=== PATIENT | male | born 1950 | race Caucasian/White ===

== ENCOUNTER 2017-03-18 15:07 | Inpatient (IN) | payer MEDICARE, BC ==
[2017-03-18] VITALS (9 sets, daily range): BP systolic 122–190; BP diastolic 52–97
[~2017-03-18] VITALS: Ht 182.9 cm; Wt 105.4 kg
[2017-03-18] MEDS ORDERED: fentaNYL PF VIAL 100 MCG/2 ML VIAL IV ONE (15:15)
[2017-03-18] MEDS ORDERED: MIDAZOLAM HCL/PF 5 MG/5 ML VIAL. IV ONE ×2 (15:15→16:00)
[2017-03-18] MEDS ORDERED: SUCCINYLCHOLINE 200 MG/10 ML VIAL. IV ONE (15:15)
[2017-03-18] MEDS ORDERED: PROPOFOL 10 MG/ML (20ML) VIAL. IV ONE (15:15)
[2017-03-18] MEDS ORDERED: LABETALOL 20 MG/4 ML DISP.SYRIN. IVP ONE (15:15)
[2017-03-18] MEDS ORDERED: ETOMIDATE 20 MG/10 ML VIAL. IV ONE (15:15)
--- NOTE | 2017-03-18 15:26 | PHYS DOC ---
Adult General HPI HPI Patient is a 66 year old male presenting to the emergency department for evaluation of being unresponsive. Patient has a GCS of 3. EMS reported a GCS of 8 however he will not respond to pain open his eyes or move any part of his body. Later on gave me history that he was at [facility] 2 days ago to have a gallbladder stent removed and he had a fall they say that his aspirin was stopped 2 days ago but he was started on Eliquis. Patient was intubated on arrival as he had gurgling breath sounds and basically unresponsive. Shortly after being intubated he was taken to the CT scanner and was found to have a catastrophic intracerebral hemorrhage that extended into his ventricle and cause massive midline shift. 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 Milner and he said this isn't unsurvivable event and was okay having the patient stay here. Review of Systems Review of Systems Unable to obtain due to medical condition Current Medications Current Medications Current Medications Medications (Trade) Dose Ordered Sig/Hernesto Start Time Stop Time Status Last Admin Dose Admin Etomidate (Amidate) 20 mg 1X ONCE 03/18/17 15:15 03/18/17 15:22 DC Fentanyl Citrate (Fentanyl 2ml Vial) 100 mcg 1X ONCE 03/18/17 15:15 03/18/17 15:22 DC Labetalol HCl (Normodyne) 20 mg 1X ONCE 03/18/17 15:15 03/18/17 15:22 DC Lorazepam (Ativan) 2 mg PRN Q4HRS PRN 03/18/17 16:30 Midazolam HCl (Versed) 5 mg 1X ONCE 03/18/17 16:00 03/18/17 16:01 DC Ondansetron HCl (Zofran) 4 mg PRN Q8HRS PRN 03/18/17 16:00 03/19/17 15:59 Propofol (Diprivan) 200 mg 1X ONCE 03/18/17 15:15 03/18/17 15:22 DC Sodium Chloride 1,000 ml @ 1,000 mls/hr 1X ONCE 03/18/17 15:45 03/18/17 16:44 03/18/17 16:31 1,000 MLS/HR Succinylcholine Chloride (Anectine) 100 mg 1X ONCE 03/18/17 15:15 03/18/17 15:22 DC Allergies Allergies Allergies Coded Allergies Type Severity Reaction Last Updated Verified Unable to Assess 03/18/17 No Physical Exam Physical Exam Constitutional: Unresponsive with gurgling breath sounds HENT: Normocephalic, atraumatic, lead to felt to be a subcutaneous cyst on his left occipital area Eyes: Pupils approximately 6 mm bilaterally with no response to light Neck: no stridor. [] Cardiovascular:Heart rate regular rhythm, no murmur [] Lungs & Thorax: Bilateral breath sounds coarse BL Abdomen: soft Skin: Warm, dry, no erythema Back: No deformity Extremities: BL 2-3+ edema Neurologic: Unresponsive with GCS of 3 Current Patient Data Vital Signs Vital Signs Date Time Temp Pulse Resp B/P (MAP) Pulse Ox O2 Delivery O2 Flow Rate FiO2 03/18/17 16:24 62 20 108/57 (74) 100 Ventilator 03/18/17 15:12 98.7 98.7 Lab Values Laboratory Tests Test 03/18/17 15:15 03/18/17 15:20 03/18/17 15:35 Salicylates Level < 2.8 mg/dL (2.8-20.0) L Salicylate Last Dose Date Unk Salicylate Last Dose Time Unk Acetaminophen Level < 10 mcg/ml (10-30) L Acetaminophen Last Dose Date Unk Acetaminophen Last Dose Time Unk Ethyl Alcohol Level < 10 mg/dL (0-10) White Blood Count 21.6 x10^3/uL (4.0-11.0) H Red Blood Count 4.43 x10^6/uL (4.30-5.70) Hemoglobin 10.8 g/dL (13.0-17.5) L Hematocrit 35.2 % (39.0-53.0) L Mean Corpuscular Volume 80 fL (79-100) Mean Corpuscular Hemoglobin 24 pg (25-35) L Mean Corpuscular Hemoglobin Concent 31 g/dL (31-37) Red Cell Distribution Width 17.7 % (11.5-14.5) H Platelet Count 234 x10^3/uL (140-400) Neutrophils (%) (Auto) 94 % (31-73) H Lymphocytes (%) (Auto) 2 % (24-48) L Monocytes (%) (Auto) 4 % (0-9) Eosinophils (%) (Auto) 0 % (0-3) Basophils (%) (Auto) 0 % (0-3) Neutrophils # (Auto) 20.2 x10^3uL (1.8-7.7) H Lymphocytes # (Auto) 0.4 x10^3/uL (1.0-4.8) L Monocytes # (Auto) 0.9 x10^3/uL (0.0-1.1) Eosinophils # (Auto) 0.0 x10^3/uL (0.0-0.7) Basophils # (Auto) 0.1 x10^3/uL (0.0-0.2) Platelet Estimate Pending Prothrombin Time 15.6 SEC (11.7-14.0) H Prothrombin Time INR 1.3 (0.8-1.1) H PTT 26 SEC (24-38) Sodium Level 143 mmol/L (136-145) Potassium Level 3.3 mmol/L (3.5-5.1) L Chloride Level 102 mmol/L (98-107) Carbon Dioxide Level 31 mmol/L (21-32) Anion Gap 10 (6-14) Blood Urea Nitrogen 22 mg/dL (8-26) Creatinine 1.2 mg/dL (0.7-1.3) Estimated GFR (Cockcroft-Gault) 60.4 BUN/Creatinine Ratio 18 (6-20) Glucose Level 166 mg/dL (70-99) H Lactic Acid Level 3.9 mmol/L (0.4-2.0) H Calcium Level 8.9 mg/dL (8.5-10.1) Magnesium Level 1.9 mg/dL (1.8-2.4) Total Bilirubin 0.6 mg/dL (0.2-1.0) Aspartate Amino Transferase (AST) 16 U/L (15-37) Alanine Aminotransferase (ALT) 18 U/L (16-63) Alkaline Phosphatase 82 U/L (46-116) Creatine Kinase 34 U/L (39-308) L Troponin I Quantitative 0.028 ng/mL (0.000-0.055) Total Protein 8.3 g/dL (6.4-8.2) H Albumin 3.6 g/dL (3.4-5.0) Albumin/Globulin Ratio 0.8 (1.0-1.7) L Lipase 73 U/L (73-393) Urine Collection Type U cath Urine Color Yellow Urine Clarity Clear Urine pH 7.5 Urine Specific [place] 1.010 Urine Protein Negative mg/dL (NEG-TRACE) Urine Glucose (UA) 100 mg/dL (NEG) Urine Ketones (Stick) Negative mg/dL (NEG) Urine Blood Large (NEG) Urine Nitrite Negative (NEG) Urine Bilirubin Negative (NEG) Urine Urobilinogen Dipstick 0.2 mg/dL (0.2 mg/dL) Urine Leukocyte Esterase Negative (NEG) Urine RBC 1-2 /HPF (0-2) Urine WBC Occ /HPF (0-4) Urine Squamous Epithelial Cells Few /LPF Urine Bacteria Many /HPF (0-FEW) Urine Opiates Screen Neg (NEG) Urine Methadone Screen Neg (NEG) Urine Barbiturates Neg (NEG) Urine Phencyclidine Screen Neg (NEG) Urine Amphetamine/Methamphetamine Neg (NEG) Urine Benzodiazepines Screen Neg (NEG) Urine Cocaine Screen Neg (NEG) Urine Cannabinoids Screen Neg (NEG) Urine Ethyl Alcohol Neg (NEG) Laboratory Tests 03/18/17 15:20 Laboratory Tests 03/18/17 15:20 EKG EKG Sinus rhythm at 80 bpm with normal axis no obvious ST elevation or depression and normal T waves. Radiology/Procedures Radiology/Procedures Indication change in mental status. Unresponsive. Code stroke. Noncontrast images of the head were obtained. No prior imaging of the head is available. Preliminary critical results were communicated to Dr. Sharma, in the emergency room, at the time of dictation. There is a large parenchymal hemorrhage in the right frontal and parietal lobes. There is some associated surrounding edema. The parenchymal hemorrhage measures approximately 6.8 cm in greatest dimension. There is associated mass effect with midline shift of approximately 1 cm. There is probable early hydrocephalus associated with the left lateral ventricle. Hemorrhage extends into both lateral ventricles the third and fourth ventricles. Some hemorrhagic component extends into the right temporal lobe. No significant subarachnoid hemorrhage is seen. IMPRESSION: Large parenchymal hemorrhage in the right cerebral hemisphere with associated surrounding edema and moderate right to left shift. There is ventricular extension of the hemorrhage. PQRS Compliance Statement: One or more of the following individualized dose reduction techniques were utilized for this examination: 1. Automated exposure control 2. Adjustment of the mA and/or kV according to patient size 3. Use of iterative reconstruction technique DICTATED and SIGNED BY: HOWARD ACOSTA MD DATE: 03/18/17 1537 Portable chest, 03/18/2017: History: Intubation No previous chest radiographs are available at this time for comparison purposes. An ET tube is in place with its tip located 4 cm above the josselin. An NG tube extends at least into the distal esophagus, although its tip is not visible on this exam The heart is enlarged. The pulmonary vascularity is congested with loss of vascular margination. There are moderate bibasilar opacities suggesting pleural fluid and underlying infiltrate. The hemidiaphragms are obscured. There is no evidence of pneumothorax. IMPRESSION: 1. The ET tube is in satisfactory position. 2. An NG tube extends at least into the distal esophagus. 3. Bilateral pulmonary infiltrates most compatible with pulmonary edema due to congestive heart failure with moderate-sized bilateral pleural effusions. DICTATED and SIGNED BY: ELADIA LAUREN MD DATE: 03/18/17 1329 Impressions: Indication: Respiratory failure Consent: Unable to give consent due to emergent nature. Medications Used: see nursing note Procedure: The patient was placed in the appropriate position. Intubation was performed using direct visualization and a 7.5 endotracheal tube. Tube secured at 24 cm at the teeth. Initial confirmation of placement included bilateral breath sounds, tube fogging, adequate chest rise, adequate pulse oximetry reading. A chest x-ray to verify correct placement of the tube showed appropriate tube position. The patient tolerated the procedure well. Complications: none. Course & Med Decision Making Course & Med Decision Making Patient with unsurvivable injury unfortunately. Patient received a dose of fentanyl and 2 doses of Versed and this lowered his blood pressure to the 100 to 130 systolic range but he received no blood pressure medications. Patient will be admitted to the ICU with palliative care consult. I had extensive discussion with family regarding his [id number] and having an unsurvivable injury. Critical care time of 40 minutes Dragon Disclaimer Dragon Disclaimer This electronic medical record was generated, in whole or in part, using a voice recognition dictation system. Departure Departure Impression: Primary Impression: Hemorrhagic cerebrovascular accident (CVA) Additional Impressions: CHF (congestive heart failure) Lactic acid acidosis Leukocytosis Disposition: ADMITTED INPATIENT Admitting Physician: Dulce Pruitt Condition: GRAVE Problem Qualifiers SAMREEN SHARMA DO Mar 18, 2017 15:26
--- NOTE | 2017-03-18 15:34 | RAD ---
Portable chest, 03/18/2017: History: Intubation No previous chest radiographs are available at this time for comparison purposes. An ET tube is in place with its tip located 4 cm above the josselin. An NG tube extends at least into the distal esophagus, although its tip is not visible on this exam The heart is enlarged. The pulmonary vascularity is congested with loss of vascular margination. There are moderate bibasilar opacities suggesting pleural fluid and underlying infiltrate. The hemidiaphragms are obscured. There is no evidence of pneumothorax. IMPRESSION: 1. The ET tube is in satisfactory position. 2. An NG tube extends at least into the distal esophagus. 3. Bilateral pulmonary infiltrates most compatible with pulmonary edema due to congestive heart failure with moderate-sized bilateral pleural effusions.
[2017-03-18] MEDS ORDERED: IV NORMAL SALINE 1000ML BAG 1,000 ML IV ONE (15:45)
--- NOTE | 2017-03-18 15:46 | RAD ---
Indication change in mental status. Unresponsive. Code stroke. Noncontrast images of the head were obtained. No prior imaging of the head is available. Preliminary critical results were communicated to Dr. Garcia, in the emergency room, at the time of dictation. There is a large parenchymal hemorrhage in the right frontal and parietal lobes. There is some associated surrounding edema. The parenchymal hemorrhage measures approximately 6.8 cm in greatest dimension. There is associated mass effect with midline shift of approximately 1 cm. There is probable early hydrocephalus associated with the left lateral ventricle. Hemorrhage extends into both lateral ventricles the third and fourth ventricles. Some hemorrhagic component extends into the right temporal lobe. No significant subarachnoid hemorrhage is seen. IMPRESSION: Large parenchymal hemorrhage in the right cerebral hemisphere with associated surrounding edema and moderate right to left shift. There is ventricular extension of the hemorrhage. PQRS Compliance Statement: One or more of the following individualized dose reduction techniques were utilized for this examination: 1. Automated exposure control 2. Adjustment of the mA and/or kV according to patient size 3. Use of iterative reconstruction technique
[2017-03-18 15:48] LABS: BASO # 0.1 x10^3/uL (0.0-0.2); BASO % 0 % (0-3); EOS % 0 % (0-3); HEMATOCRIT 35.2 % (39.0-53.0); HEMOGLOBIN 10.8 g/dL (13.0-17.5); LYMPH # 0.4 x10^3/uL (1.0-4.8); LYMPH % 2 % (24-48); MEAN CORPUSCULAR HEMOGLOBIN 24 pg (25-35); MEAN CORPUSCULAR HGB CONC 31 g/dL (31-37); MEAN CORPUSCULAR VOLUME 80 fL (79-100); MONO % 4 % (0-9); NEUT % 94 % (31-73); PLATELET COUNT 234 x10^3/uL (140-400); RED BLOOD COUNT 4.43 x10^6/uL (4.30-5.70); RED CELL DISTRIBUTION WIDTH 17.7 % (11.5-14.5); WHITE BLOOD COUNT 21.6 x10^3/uL (4.0-11.0)
[2017-03-18 16:00] LABS: INR 1.3 (0.8-1.1); PROTHROMBIN TIME PATIENT 15.6 SEC (11.7-14.0)
[2017-03-18] MEDS ORDERED: ONDANSETRON PF 4 MG/2 ML VIAL. IV PRN (16:00)
[2017-03-18 16:01] LABS: BILIRUBIN,URINE NEGATIVE (NEG); GLUCOSE,URINE 100 mg/dL (NEG); NITRITE,URINE NEGATIVE (NEG); PH,URINE 7.5; PROTEIN,URINE NEGATIVE (NEG-TRACE); UROBILINOGEN,URINE 0.2 mg/dL (0.2 mg/dL)
[2017-03-18 16:03] LABS: BARBITURATES NEG (NEG); BENZODIAZEPINES NEG (NEG); CANNABINOIDS NEG (NEG); COCAINE NEG (NEG); METHADONE NEG (NEG); OPIATES NEG (NEG); PHENCYCLIDINE NEG (NEG)
[2017-03-18 16:09] LABS: BACTERIA,URINE MANY /HPF (0-FEW); WBC,URINE OCC /HPF (0-4)
[2017-03-18 16:10] LABS: SQUAMOUS EPITHELIAL CELL,UR FEW /LPF
[2017-03-18 16:12] LABS: CALCIUM 8.9 mg/dL (8.5-10.1); CREATININE 1.2 mg/dL (0.7-1.3); GFR 60.4; POTASSIUM 3.3 mmol/L (3.5-5.1)
[2017-03-18 16:17] LABS: ALBUMIN 3.6 g/dL (3.4-5.0); ALBUMIN/GLOBULIN RATIO 0.8 (1.0-1.7); MAGNESIUM 1.9 mg/dL (1.8-2.4); TOTAL BILIRUBIN 0.6 mg/dL (0.2-1.0); TOTAL PROTEIN 8.3 g/dL (6.4-8.2)
[2017-03-18 16:20] LABS: ETHANOL < 10 mg/dL (0-10)
--- NOTE | 2017-03-18 16:27 | PDOC1 ---
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 At ER arrival, GCS 3, intubated immediately, CT head shows: IMPRESSION: Large parenchymal hemorrhage in the right cerebral hemisphere with associated surrounding edema and moderate right to left shift. There is ventricular extension of the hemorrhage. Neuro sx consulted, no change of survival or meaningful recovery, Was initially hypertensive on arrival, very, no falls. ER MD has updated family and so by my visit they are all shaken up and cant decide yet on when to terminally extubate (though they know this is the next step). Also unable to address code status with and dtr, But they do know no chance of meaningful recovery, as also shared by neurosx. BUt understands I wont start IVF, stop blood draws, and no PO meds, I will involve SW to get hospice, leaning towards SNU with hospice rather than home with hospice, Visited second time at ER to ask code status, dtr unable to make that call, wants to talk with her mother, Clearly still all shaken up and unable to make decisions currently,. Past Medical History Cardiovascular: AFIB, HTN, Hyperlipidemia Past Surgical History Past Surgical History: Cholecystectomy Social History Smoke: No ALCOHOL: none Drugs: None Current Medications Current Medications Current Medications Succinylcholine Chloride (Anectine) 100 mg 1X ONCE IV ; Start 03/18/17 at 15:15 ; Stop 03/18/17 at 15:22; Status DC Etomidate (Amidate) 20 mg 1X ONCE IV ; Start 03/18/17 at 15:15; Stop 03/18/17 at 15:22; Status DC Midazolam HCl (Versed) 5 mg 1X ONCE IV ; Start 03/18/17 at 15:15; Stop 03/18/17 at 15:22; Status DC Fentanyl Citrate (Fentanyl 2ml Vial) 100 mcg 1X ONCE IV ; Start 03/18/17 at 15: 15; Stop 03/18/17 at 15:22; Status DC Propofol (Diprivan) 200 mg 1X ONCE IV ; Start 03/18/17 at 15:15; Stop 03/18/17 at 15:22; Status DC Labetalol HCl (Normodyne) 20 mg 1X ONCE IVP ; Start 03/18/17 at 15:15; Stop 03/18 at 15:22; Status DC Midazolam HCl (Versed) 5 mg 1X ONCE IV ; Start 03/18/17 at 16:00; Stop 03/18/17 at 16:01; Status DC Sodium Chloride 1,000 ml @ 1,000 mls/hr 1X ONCE IV ; Start 03/18/17 at 15:45; Stop 03/18/17 at 16:44 Ondansetron HCl (Zofran) 4 mg PRN Q8HRS PRN IV NAUSEA/VOMITING; Start 03/18/17 at 16:00; Stop 03/19/17 at 15:59 Allergies Allergies: Coded Allergies: Unable to Assess (Unverified , 03/18/17) ROS Review of System GCS 3 Physical Exam General: No acute distress, Other (intubated, no sedation, no response to sternal rub) Lungs: Clear to auscultation Heart: S1S2 Cardiovascular: S1, S2 Abdomen: Normal bowel sounds, Soft, No tenderness, No hepatosplenomegaly, No masses, Other (midline vertical scar) Male Genitals Exam: normal genitalia, normal prostate PELVIC: Nml ext genitalia Extremities: No clubbing, No cyanosis, No edema, Normal pulses, No tenderness/ swelling Skin: No rashes, No breakdown, No significant lesion Neuro: Normal gait, Normal speech, Strength at 5/5 X4 ext, Normal tone, Sensation intact, Cranial nerves 3-12 NL, Reflexes 2+ Psych/Mental Status: Mental status NL, Mood NL Vitals Vitals Vital Signs Date Time Temp Pulse Resp B/P (MAP) Pulse Ox O2 Delivery O2 Flow Rate FiO2 03/18/17 15:12 98.7 92 20 208/105 (139) 100 NonRebreather Mask 98.7 Labs Labs Laboratory Tests Test 03/18/17 15:15 03/18/17 15:20 03/18/17 15:35 Salicylates Level < 2.8 mg/dL (2.8-20.0) Salicylate Last Dose Date Unk Salicylate Last Dose Time Unk Acetaminophen Level < 10 mcg/ml (10-30) Acetaminophen Last Dose Date Unk Acetaminophen Last Dose Time Unk Ethyl Alcohol Level < 10 mg/dL (0-10) White Blood Count 21.6 x10^3/uL (4.0-11.0) Red Blood Count 4.43 x10^6/uL (4.30-5.70) Hemoglobin 10.8 g/dL (13.0-17.5) Hematocrit 35.2 % (39.0-53.0) Mean Corpuscular Volume 80 fL (79-100) Mean Corpuscular Hemoglobin 24 pg (25-35) Mean Corpuscular Hemoglobin Concent 31 g/dL (31-37) Red Cell Distribution Width 17.7 % (11.5-14.5) Platelet Count 234 x10^3/uL (140-400) Neutrophils (%) (Auto) 94 % (31-73) Lymphocytes (%) (Auto) 2 % (24-48) Monocytes (%) (Auto) 4 % (0-9) Eosinophils (%) (Auto) 0 % (0-3) Basophils (%) (Auto) 0 % (0-3) Neutrophils # (Auto) 20.2 x10^3uL (1.8-7.7) Lymphocytes # (Auto) 0.4 x10^3/uL (1.0-4.8) Monocytes # (Auto) 0.9 x10^3/uL (0.0-1.1) Eosinophils # (Auto) 0.0 x10^3/uL (0.0-0.7) Basophils # (Auto) 0.1 x10^3/uL (0.0-0.2) Prothrombin Time 15.6 SEC (11.7-14.0) Prothromb Time International Ratio 1.3 (0.8-1.1) Activated Partial Thromboplast Time 26 SEC (24-38) Sodium Level 143 mmol/L (136-145) Potassium Level 3.3 mmol/L (3.5-5.1) Chloride Level 102 mmol/L (98-107) Carbon Dioxide Level 31 mmol/L (21-32) Anion Gap 10 (6-14) Blood Urea Nitrogen 22 mg/dL (8-26) Creatinine 1.2 mg/dL (0.7-1.3) Estimated GFR (Cockcroft-Gault) 60.4 BUN/Creatinine Ratio 18 (6-20) Glucose Level 166 mg/dL (70-99) Lactic Acid Level 3.9 mmol/L (0.4-2.0) Calcium Level 8.9 mg/dL (8.5-10.1) Magnesium Level 1.9 mg/dL (1.8-2.4) Total Bilirubin 0.6 mg/dL (0.2-1.0) Aspartate Amino Transf (AST/SGOT) 16 U/L (15-37) Alanine Aminotransferase (ALT/SGPT) 18 U/L (16-63) Alkaline Phosphatase 82 U/L (46-116) Creatine Kinase 34 U/L (39-308) Troponin I Quantitative 0.028 ng/mL (0.000-0.055) Total Protein 8.3 g/dL (6.4-8.2) Albumin 3.6 g/dL (3.4-5.0) Albumin/Globulin Ratio 0.8 (1.0-1.7) Lipase 73 U/L (73-393) Urine Collection Type U cath Urine Color Yellow Urine Clarity Clear Urine pH 7.5 Urine Specific [place] 1.010 Urine Protein Negative mg/dL (NEG-TRACE) Urine Glucose (UA) 100 mg/dL (NEG) Urine Ketones (Stick) Negative mg/dL (NEG) Urine Blood Large (NEG) Urine Nitrite Negative (NEG) Urine Bilirubin Negative (NEG) Urine Urobilinogen Dipstick 0.2 mg/dL (0.2 mg/dL) Urine Leukocyte Esterase Negative (NEG) Urine RBC 1-2 /HPF (0-2) Urine WBC Occ /HPF (0-4) Urine Squamous Epithelial Cells Few /LPF Urine Bacteria Many /HPF (0-FEW) Urine Opiates Screen Neg (NEG) Urine Methadone Screen Neg (NEG) Urine Barbiturates Neg (NEG) Urine Phencyclidine Screen Neg (NEG) Urine Amphetamine/Methamphetamine Neg (NEG) Urine Benzodiazepines Screen Neg (NEG) Urine Cocaine Screen Neg (NEG) Urine Cannabinoids Screen Neg (NEG) Urine Ethyl Alcohol Neg (NEG) Laboratory Tests Test 03/18/17 15:15 03/18/17 15:20 03/18/17 15:35 Salicylates Level < 2.8 mg/dL (2.8-20.0) Salicylate Last Dose Date Unk Salicylate Last Dose Time Unk Acetaminophen Level < 10 mcg/ml (10-30) Acetaminophen Last Dose Date Unk Acetaminophen Last Dose Time Unk Ethyl Alcohol Level < 10 mg/dL (0-10) White Blood Count 21.6 x10^3/uL (4.0-11.0) Red Blood Count 4.43 x10^6/uL (4.30-5.70) Hemoglobin 10.8 g/dL (13.0-17.5) Hematocrit 35.2 % (39.0-53.0) Mean Corpuscular Volume 80 fL (79-100) Mean Corpuscular Hemoglobin 24 pg (25-35) Mean Corpuscular Hemoglobin Concent 31 g/dL (31-37) Red Cell Distribution Width 17.7 % (11.5-14.5) Platelet Count 234 x10^3/uL (140-400) Neutrophils (%) (Auto) 94 % (31-73) Lymphocytes (%) (Auto) 2 % (24-48) Monocytes (%) (Auto) 4 % (0-9) Eosinophils (%) (Auto) 0 % (0-3) Basophils (%) (Auto) 0 % (0-3) Neutrophils # (Auto) 20.2 x10^3uL (1.8-7.7) Lymphocytes # (Auto) 0.4 x10^3/uL (1.0-4.8) Monocytes # (Auto) 0.9 x10^3/uL (0.0-1.1) Eosinophils # (Auto) 0.0 x10^3/uL (0.0-0.7) Basophils # (Auto) 0.1 x10^3/uL (0.0-0.2) Prothrombin Time 15.6 SEC (11.7-14.0) Prothromb Time International Ratio 1.3 (0.8-1.1) Activated Partial Thromboplast Time 26 SEC (24-38) Sodium Level 143 mmol/L (136-145) Potassium Level 3.3 mmol/L (3.5-5.1) Chloride Level 102 mmol/L (98-107) Carbon Dioxide Level 31 mmol/L (21-32) Anion Gap 10 (6-14) Blood Urea Nitrogen 22 mg/dL (8-26) Creatinine 1.2 mg/dL (0.7-1.3) Estimated GFR (Cockcroft-Gault) 60.4 BUN/Creatinine Ratio 18 (6-20) Glucose Level 166 mg/dL (70-99) Lactic Acid Level 3.9 mmol/L (0.4-2.0) Calcium Level 8.9 mg/dL (8.5-10.1) Magnesium Level 1.9 mg/dL (1.8-2.4) Total Bilirubin 0.6 mg/dL (0.2-1.0) Aspartate Amino Transf (AST/SGOT) 16 U/L (15-37) Alanine Aminotransferase (ALT/SGPT) 18 U/L (16-63) Alkaline Phosphatase 82 U/L (46-116) Creatine Kinase 34 U/L (39-308) Troponin I Quantitative 0.028 ng/mL (0.000-0.055) Total Protein 8.3 g/dL (6.4-8.2) Albumin 3.6 g/dL (3.4-5.0) Albumin/Globulin Ratio 0.8 (1.0-1.7) Lipase 73 U/L (73-393) Urine Collection Type U cath Urine Color Yellow Urine Clarity Clear Urine pH 7.5 Urine Specific [place] 1.010 Urine Protein Negative mg/dL (NEG-TRACE) Urine Glucose (UA) 100 mg/dL (NEG) Urine Ketones (Stick) Negative mg/dL (NEG) Urine Blood Large (NEG) Urine Nitrite Negative (NEG) Urine Bilirubin Negative (NEG) Urine Urobilinogen Dipstick 0.2 mg/dL (0.2 mg/dL) Urine Leukocyte Esterase Negative (NEG) Urine RBC 1-2 /HPF (0-2) Urine WBC Occ /HPF (0-4) Urine Squamous Epithelial Cells Few /LPF Urine Bacteria Many /HPF (0-FEW) Urine Opiates Screen Neg (NEG) Urine Methadone Screen Neg (NEG) Urine Barbiturates Neg (NEG) Urine Phencyclidine Screen Neg (NEG) Urine Amphetamine/Methamphetamine Neg (NEG) Urine Benzodiazepines Screen Neg (NEG) Urine Cocaine Screen Neg (NEG) Urine Cannabinoids Screen Neg (NEG) Urine Ethyl Alcohol Neg (NEG) VTE Prophylaxis Ordered VTE Prophylaxis Devices: Contraindicated VTE Pharmacological Prophylaxi: Contraindicated Assessment/Plan Assessment/Plan 1. Large parenchymal hemorrhage in the right cerebral hemisphere with associated surrounding edema & ventricular extension of the hemorrhage. with moderate right to left shift. 2. Hx atrial fib and CVA x 3, TIA started on AC (eliquis) 3. HTN emergency POA 4. Necrotic GB sx hx (21 day stay at ), s.p exlap with cholecystectomy ( midline vertical scar) PLAN: Admt ICU bec vented but I did not consult pulmo anymore since will be going hospice, Cont current vent settings, adjust FiO2 as needed. But no more lab draws, IVF or meds Neurosx has been called by ER So far full code - need to readdress, I tried at ER, could not decide currently. BUt is aware of mo meaningful chance of recovery or even survival Agreeable to start arranging SNU hospice Terminal Extubation is recommended - they know (i have discussed). Pls let me know when they are ready to proceed with terminal extub and DNR Meanwhile, some jerky movements, non purposeful already, ativan prn, hospice packet,. Dw dtr and . Dr. Garcia Seen at ER # 1, signif time counselling, 2 visits DES HAY MD Mar 18, 2017 16:27
[2017-03-18 16:39] LABS: ANISOCYTOSIS SLIGHT; HYPOCHROMIA SLIGHT; PLT ESTIMATE ADEQUATE (ADEQUATE); POIKILOCYTOSIS SLIGHT
[2017-03-18 16:40] LABS: OVALOCYTES OCC
[2017-03-18] MEDS ORDERED: APIX5TAB PO (16:40)
[2017-03-18] MEDS ORDERED: AMLO5TAB2 PO (16:40)
[2017-03-18] MEDS ORDERED: MAGN400C PO (16:40)
[2017-03-18] MEDS ORDERED: METO50TA2 PO (16:40)
[2017-03-18] MEDS ORDERED: PANT40TA5 PO (16:40)
[2017-03-18] MEDS ORDERED: L.AC1CAP6 PO (16:40)
[2017-03-18] MEDS ORDERED: ASPI-630 PO (16:40)
[2017-03-18] MEDS ORDERED: [UNRECOGNIZED DRUG - OTHER] PO (16:40)
[2017-03-18] MEDS ORDERED: FURO20TA3 PO (16:40)
[2017-03-18] MEDS ORDERED: SCOPOLAMINE 1.5MG PATCH. TD SCH (17:00)
[2017-03-18 17:06] LABS: HCO3 ABG 27 mmol/L (21-28); PCO2 ABG 40 mmHg (35-46); PH ABG 7.44 (7.35-7.45); PO2 ABG 260 mmHg (65-108); SAT O2 ABG 99 % (92-99)
[2017-03-18 17:07] LABS: FIO2 ABG 100
--- NOTE | 2017-03-18 17:08 | EKG ---
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
[2017-03-18] MEDS ORDERED: SUCCINYLCHOLINE 200 MG/10 ML VIAL. ONE (19:20)
[2017-03-18 20:03] LABS: HCO3 ABG 28 mmol/L (21-28); PCO2 ABG 35 mmHg (35-46); PH ABG 7.52 (7.35-7.45); PO2 ABG 92 mmHg (65-108); SAT O2 ABG 97 % (92-99)
[2017-03-18 20:06] LABS: FIO2 ABG 50
[2017-03-18] MEDS ORDERED: LABETALOL 20 MG/4 ML DISP.SYRIN. IVP PRN (22:45)
[2017-03-18] MEDS ORDERED: MORPHINE SULFATE 2 MG/ML DISP.SYRIN. IV PRN (22:45)
[2017-03-19] VITALS (11 sets, daily range): BP systolic 56–196; BP diastolic 43–111
--- NOTE | 2017-03-19 05:55 | ACF ---
Admission Forms Criteria STROKE: HEMORRHAGIC (Place 'X' for any and all applicable criteria): Admission is indicated for 1 or more of the following(1)(2)(3)(4)(5)(6) : [X ]I. Acute hemorrhagic (eg, intracerebral) stroke Extended stay beyond goal length of stay may be needed for(1)(2)(6) [ ]a) Surgical intervention (9) [ ]b) Major deficit [ ]c) Increased intracranial pressure [ ]d) Hydrocephalus [ ]e) Seizures [ ]f) Venous thromboembolism [ ]g) Severe electrolyte abnormality (eg, hypernatremia, hyponatremia) [ ]h) Hospital-acquired infection (eg, urinary tract infection, pneumonia) [ ]i) Comorbidities (heart failure, renal failure) The original [facility] content created by [facility] [email or web address] has been revised. The portions of the content which have been revised are identified through the use of italic text, and [facility] has neither reviewed nor approved the modified material. All other unmodified content is copyright [email or web address]. Please see references footnoted in the original [facility] [email or web address] edition 2014 Admission Criteria Met?: Yes ALVAREZ VELEZ Mar 19, 2017 05:55
--- NOTE | 2017-03-19 08:56 | PDOC ---
PROGRESS NOTES Chief Complaint Chief Complaint 1. Large parenchymal hemorrhage in the right cerebral hemisphere with associated surrounding edema & ventricular extension of the hemorrhage. with moderate right to left shift. 2. Hx atrial fib and CVA x 3, TIA started on AC (eliquis) 3. HTN emergency POA 4. Necrotic GB sx hx (21 day stay at [facility]), s.p exlap with cholecystectomy ( midline vertical scar) 5. DNR 6. Transient atrial fib RVR History of Present Illness History of Present Illness CAlled by night RN for systolic > 200 and a fib RVR 140s Pt remains to have no reflexes, no gag, no purposeful movement NO resp to sternal rub, intubated WITHOUT sedation Dw fam at bedside again JUst waiting in fam members before terminal extubation today NOW HYPOTENSIVE NO UO Was going iinto SIADH like picture last night dumping urine PLAN; Await other members then TErminal extubation later DNR [facility] HOspice SW involved Dw rn hedis and all fam members- time 31 mins Vitals Vitals Vital Signs Date Time Temp Pulse Resp B/P (MAP) Pulse Ox O2 Delivery O2 Flow Rate FiO2 03/19/17 08:00 98.5 96 16 58/45 (49) 96 Ventilator 98.5 Physical Exam General: No acute distress, Other (intubated, no sedation, no response to sternal rub) Abdomen: Normal bowel sounds, Soft, No tenderness, No hepatosplenomegaly, No masses, Other (midline vertical scar) Extremities: No clubbing, No cyanosis, No edema, Normal pulses, No tenderness/ swelling Skin: No rashes, No breakdown, No significant lesion Labs LABS Laboratory Tests Test 03/18/17 15:15 03/18/17 15:20 03/18/17 15:35 03/18/17 16:49 Salicylates Level < 2.8 mg/dL (2.8-20.0) Salicylate Last Dose Date Unk Salicylate Last Dose Time Unk Acetaminophen Level < 10 mcg/ml (10-30) Acetaminophen Last Dose Date Unk Acetaminophen Last Dose Time Unk Ethyl Alcohol Level < 10 mg/dL (0-10) White Blood Count 21.6 x10^3/uL (4.0-11.0) Red Blood Count 4.43 x10^6/uL (4.30-5.70) Hemoglobin 10.8 g/dL (13.0-17.5) Hematocrit 35.2 % (39.0-53.0) Mean Corpuscular Volume 80 fL (79-100) Mean Corpuscular Hemoglobin 24 pg (25-35) Mean Corpuscular Hemoglobin Concent 31 g/dL (31-37) Red Cell Distribution Width 17.7 % (11.5-14.5) Platelet Count 234 x10^3/uL (140-400) Neutrophils (%) (Auto) 94 % (31-73) Lymphocytes (%) (Auto) 2 % (24-48) Monocytes (%) (Auto) 4 % (0-9) Eosinophils (%) (Auto) 0 % (0-3) Basophils (%) (Auto) 0 % (0-3) Neutrophils # (Auto) 20.2 x10^3uL (1.8-7.7) Lymphocytes # (Auto) 0.4 x10^3/uL (1.0-4.8) Monocytes # (Auto) 0.9 x10^3/uL (0.0-1.1) Eosinophils # (Auto) 0.0 x10^3/uL (0.0-0.7) Basophils # (Auto) 0.1 x10^3/uL (0.0-0.2) Segmented Neutrophils % 98 % (35-66) Monocytes % 2 % (0-10) Platelet Estimate Adequate (ADEQUATE) Hypochromasia Slight Poikilocytosis Slight Anisocytosis Slight Ovalocytes Occ Prothrombin Time 15.6 SEC (11.7-14.0) Prothromb Time International Ratio 1.3 (0.8-1.1) Activated Partial Thromboplast Time 26 SEC (24-38) Sodium Level 143 mmol/L (136-145) Potassium Level 3.3 mmol/L (3.5-5.1) Chloride Level 102 mmol/L (98-107) Carbon Dioxide Level 31 mmol/L (21-32) Anion Gap 10 (6-14) Blood Urea Nitrogen 22 mg/dL (8-26) Creatinine 1.2 mg/dL (0.7-1.3) Estimated GFR (Cockcroft-Gault) 60.4 BUN/Creatinine Ratio 18 (6-20) Glucose Level 166 mg/dL (70-99) Lactic Acid Level 3.9 mmol/L (0.4-2.0) Calcium Level 8.9 mg/dL (8.5-10.1) Magnesium Level 1.9 mg/dL (1.8-2.4) Total Bilirubin 0.6 mg/dL (0.2-1.0) Aspartate Amino Transf (AST/SGOT) 16 U/L (15-37) Alanine Aminotransferase (ALT/SGPT) 18 U/L (16-63) Alkaline Phosphatase 82 U/L (46-116) Creatine Kinase 34 U/L (39-308) Troponin I Quantitative 0.028 ng/mL (0.000-0.055) EK-Ube-V-Type Natriuretic Peptide 6819 pg/mL (0-124) Total Protein 8.3 g/dL (6.4-8.2) Albumin 3.6 g/dL (3.4-5.0) Albumin/Globulin Ratio 0.8 (1.0-1.7) Lipase 73 U/L (73-393) Thyroid Stimulating Hormone (TSH) 0.790 uIU/mL (0.358-3.74) Urine Collection Type U cath Urine Color Yellow Urine Clarity Clear Urine pH 7.5 Urine Specific [place] 1.010 Urine Protein Negative mg/dL (NEG-TRACE) Urine Glucose (UA) 100 mg/dL (NEG) Urine Ketones (Stick) Negative mg/dL (NEG) Urine Blood Large (NEG) Urine Nitrite Negative (NEG) Urine Bilirubin Negative (NEG) Urine Urobilinogen Dipstick 0.2 mg/dL (0.2 mg/dL) Urine Leukocyte Esterase Negative (NEG) Urine RBC 1-2 /HPF (0-2) Urine WBC Occ /HPF (0-4) Urine Squamous Epithelial Cells Few /LPF Urine Bacteria Many /HPF (0-FEW) Urine Opiates Screen Neg (NEG) Urine Methadone Screen Neg (NEG) Urine Barbiturates Neg (NEG) Urine Phencyclidine Screen Neg (NEG) Urine Amphetamine/Methamphetamine Neg (NEG) Urine Benzodiazepines Screen Neg (NEG) Urine Cocaine Screen Neg (NEG) Urine Cannabinoids Screen Neg (NEG) Urine Ethyl Alcohol Neg (NEG) O2 Saturation 99 % (92-99) Arterial Blood pH 7.44 (7.35-7.45) Arterial Blood pCO2 at Patient Temp 40 mmHg (35-46) Arterial Blood pO2 at Patient Temp 260 mmHg (65-108) Arterial Blood HCO3 27 mmol/L (21-28) Arterial Blood Base Excess 3 mmol/L (-3-3) FiO2 100 Test 03/18/17 19:55 03/18/17 21:40 O2 Saturation 97 % (92-99) Arterial Blood pH 7.52 (7.35-7.45) Arterial Blood pCO2 at Patient Temp 35 mmHg (35-46) Arterial Blood pO2 at Patient Temp 92 mmHg (65-108) Arterial Blood HCO3 28 mmol/L (21-28) Arterial Blood Base Excess 5 mmol/L (-3-3) FiO2 50 Ammonia 11 mcmol/L (11-34) Review of Systems Review of Systems no brain fcn, GCS 3 Assessment and Plan Assessmemt and Plan Problems Medical Problems: (1) CHF (congestive heart failure) Status: Acute (2) Hemorrhagic cerebrovascular accident (CVA) Status: Acute (3) Lactic acid acidosis Status: Acute (4) Leukocytosis Status: Acute Problems: Comment Review of Relevant I have reviewed the following items luz (where applicable) has been applied. Labs Laboratory Tests Test 03/18/17 15:15 03/18/17 15:20 03/18/17 15:35 03/18/17 16:49 Salicylates Level < 2.8 mg/dL (2.8-20.0) Salicylate Last Dose Date Unk Salicylate Last Dose Time Unk Acetaminophen Level < 10 mcg/ml (10-30) Acetaminophen Last Dose Date Unk Acetaminophen Last Dose Time Unk Ethyl Alcohol Level < 10 mg/dL (0-10) White Blood Count 21.6 x10^3/uL (4.0-11.0) Red Blood Count 4.43 x10^6/uL (4.30-5.70) Hemoglobin 10.8 g/dL (13.0-17.5) Hematocrit 35.2 % (39.0-53.0) Mean Corpuscular Volume 80 fL (79-100) Mean Corpuscular Hemoglobin 24 pg (25-35) Mean Corpuscular Hemoglobin Concent 31 g/dL (31-37) Red Cell Distribution Width 17.7 % (11.5-14.5) Platelet Count 234 x10^3/uL (140-400) Neutrophils (%) (Auto) 94 % (31-73) Lymphocytes (%) (Auto) 2 % (24-48) Monocytes (%) (Auto) 4 % (0-9) Eosinophils (%) (Auto) 0 % (0-3) Basophils (%) (Auto) 0 % (0-3) Neutrophils # (Auto) 20.2 x10^3uL (1.8-7.7) Lymphocytes # (Auto) 0.4 x10^3/uL (1.0-4.8) Monocytes # (Auto) 0.9 x10^3/uL (0.0-1.1) Eosinophils # (Auto) 0.0 x10^3/uL (0.0-0.7) Basophils # (Auto) 0.1 x10^3/uL (0.0-0.2) Segmented Neutrophils % 98 % (35-66) Monocytes % 2 % (0-10) Platelet Estimate Adequate (ADEQUATE) Hypochromasia Slight Poikilocytosis Slight Anisocytosis Slight Ovalocytes Occ Prothrombin Time 15.6 SEC (11.7-14.0) Prothromb Time International Ratio 1.3 (0.8-1.1) Activated Partial Thromboplast Time 26 SEC (24-38) Sodium Level 143 mmol/L (136-145) Potassium Level 3.3 mmol/L (3.5-5.1) Chloride Level 102 mmol/L (98-107) Carbon Dioxide Level 31 mmol/L (21-32) Anion Gap 10 (6-14) Blood Urea Nitrogen 22 mg/dL (8-26) Creatinine 1.2 mg/dL (0.7-1.3) Estimated GFR (Cockcroft-Gault) 60.4 BUN/Creatinine Ratio 18 (6-20) Glucose Level 166 mg/dL (70-99) Lactic Acid Level 3.9 mmol/L (0.4-2.0) Calcium Level 8.9 mg/dL (8.5-10.1) Magnesium Level 1.9 mg/dL (1.8-2.4) Total Bilirubin 0.6 mg/dL (0.2-1.0) Aspartate Amino Transf (AST/SGOT) 16 U/L (15-37) Alanine Aminotransferase (ALT/SGPT) 18 U/L (16-63) Alkaline Phosphatase 82 U/L (46-116) Creatine Kinase 34 U/L (39-308) Troponin I Quantitative 0.028 ng/mL (0.000-0.055) KP-Nor-X-Type Natriuretic Peptide 6819 pg/mL (0-124) Total Protein 8.3 g/dL (6.4-8.2) Albumin 3.6 g/dL (3.4-5.0) Albumin/Globulin Ratio 0.8 (1.0-1.7) Lipase 73 U/L (73-393) Thyroid Stimulating Hormone (TSH) 0.790 uIU/mL (0.358-3.74) Urine Collection Type U cath Urine Color Yellow Urine Clarity Clear Urine pH 7.5 Urine Specific [place] 1.010 Urine Protein Negative mg/dL (NEG-TRACE) Urine Glucose (UA) 100 mg/dL (NEG) Urine Ketones (Stick) Negative mg/dL (NEG) Urine Blood Large (NEG) Urine Nitrite Negative (NEG) Urine Bilirubin Negative (NEG) Urine Urobilinogen Dipstick 0.2 mg/dL (0.2 mg/dL) Urine Leukocyte Esterase Negative (NEG) Urine RBC 1-2 /HPF (0-2) Urine WBC Occ /HPF (0-4) Urine Squamous Epithelial Cells Few /LPF Urine Bacteria Many /HPF (0-FEW) Urine Opiates Screen Neg (NEG) Urine Methadone Screen Neg (NEG) Urine Barbiturates Neg (NEG) Urine Phencyclidine Screen Neg (NEG) Urine Amphetamine/Methamphetamine Neg (NEG) Urine Benzodiazepines Screen Neg (NEG) Urine Cocaine Screen Neg (NEG) Urine Cannabinoids Screen Neg (NEG) Urine Ethyl Alcohol Neg (NEG) O2 Saturation 99 % (92-99) Arterial Blood pH 7.44 (7.35-7.45) Arterial Blood pCO2 at Patient Temp 40 mmHg (35-46) Arterial Blood pO2 at Patient Temp 260 mmHg (65-108) Arterial Blood HCO3 27 mmol/L (21-28) Arterial Blood Base Excess 3 mmol/L (-3-3) FiO2 100 Test 03/18/17 19:55 03/18/17 21:40 O2 Saturation 97 % (92-99) Arterial Blood pH 7.52 (7.35-7.45) Arterial Blood pCO2 at Patient Temp 35 mmHg (35-46) Arterial Blood pO2 at Patient Temp 92 mmHg (65-108) Arterial Blood HCO3 28 mmol/L (21-28) Arterial Blood Base Excess 5 mmol/L (-3-3) FiO2 50 Ammonia 11 mcmol/L (11-34) Laboratory Tests Test 03/18/17 15:15 03/18/17 15:20 03/18/17 15:35 03/18/17 16:49 Salicylates Level < 2.8 mg/dL (2.8-20.0) Salicylate Last Dose Date Unk Salicylate Last Dose Time Unk Acetaminophen Level < 10 mcg/ml (10-30) Acetaminophen Last Dose Date Unk Acetaminophen Last Dose Time Unk Ethyl Alcohol Level < 10 mg/dL (0-10) White Blood Count 21.6 x10^3/uL (4.0-11.0) Red Blood Count 4.43 x10^6/uL (4.30-5.70) Hemoglobin 10.8 g/dL (13.0-17.5) Hematocrit 35.2 % (39.0-53.0) Mean Corpuscular Volume 80 fL (79-100) Mean Corpuscular Hemoglobin 24 pg (25-35) Mean Corpuscular Hemoglobin Concent 31 g/dL (31-37) Red Cell Distribution Width 17.7 % (11.5-14.5) Platelet Count 234 x10^3/uL (140-400) Neutrophils (%) (Auto) 94 % (31-73) Lymphocytes (%) (Auto) 2 % (24-48) Monocytes (%) (Auto) 4 % (0-9) Eosinophils (%) (Auto) 0 % (0-3) Basophils (%) (Auto) 0 % (0-3) Neutrophils # (Auto) 20.2 x10^3uL (1.8-7.7) Lymphocytes # (Auto) 0.4 x10^3/uL (1.0-4.8) Monocytes # (Auto) 0.9 x10^3/uL (0.0-1.1) Eosinophils # (Auto) 0.0 x10^3/uL (0.0-0.7) Basophils # (Auto) 0.1 x10^3/uL (0.0-0.2) Segmented Neutrophils % 98 % (35-66) Monocytes % 2 % (0-10) Platelet Estimate Adequate (ADEQUATE) Hypochromasia Slight Poikilocytosis Slight Anisocytosis Slight Ovalocytes Occ Prothrombin Time 15.6 SEC (11.7-14.0) Prothromb Time International Ratio 1.3 (0.8-1.1) Activated Partial Thromboplast Time 26 SEC (24-38) Sodium Level 143 mmol/L (136-145) Potassium Level 3.3 mmol/L (3.5-5.1) Chloride Level 102 mmol/L (98-107) Carbon Dioxide Level 31 mmol/L (21-32) Anion Gap 10 (6-14) Blood Urea Nitrogen 22 mg/dL (8-26) Creatinine 1.2 mg/dL (0.7-1.3) Estimated GFR (Cockcroft-Gault) 60.4 BUN/Creatinine Ratio 18 (6-20) Glucose Level 166 mg/dL (70-99) Lactic Acid Level 3.9 mmol/L (0.4-2.0) Calcium Level 8.9 mg/dL (8.5-10.1) Magnesium Level 1.9 mg/dL (1.8-2.4) Total Bilirubin 0.6 mg/dL (0.2-1.0) Aspartate Amino Transf (AST/SGOT) 16 U/L (15-37) Alanine Aminotransferase (ALT/SGPT) 18 U/L (16-63) Alkaline Phosphatase 82 U/L (46-116) Creatine Kinase 34 U/L (39-308) Troponin I Quantitative 0.028 ng/mL (0.000-0.055) BC-Ipo-P-Type Natriuretic Peptide 6819 pg/mL (0-124) Total Protein 8.3 g/dL (6.4-8.2) Albumin 3.6 g/dL (3.4-5.0) Albumin/Globulin Ratio 0.8 (1.0-1.7) Lipase 73 U/L (73-393) Thyroid Stimulating Hormone (TSH) 0.790 uIU/mL (0.358-3.74) Urine Collection Type U cath Urine Color Yellow Urine Clarity Clear Urine pH 7.5 Urine Specific [place] 1.010 Urine Protein Negative mg/dL (NEG-TRACE) Urine Glucose (UA) 100 mg/dL (NEG) Urine Ketones (Stick) Negative mg/dL (NEG) Urine Blood Large (NEG) Urine Nitrite Negative (NEG) Urine Bilirubin Negative (NEG) Urine Urobilinogen Dipstick 0.2 mg/dL (0.2 mg/dL) Urine Leukocyte Esterase Negative (NEG) Urine RBC 1-2 /HPF (0-2) Urine WBC Occ /HPF (0-4) Urine Squamous Epithelial Cells Few /LPF Urine Bacteria Many /HPF (0-FEW) Urine Opiates Screen Neg (NEG) Urine Methadone Screen Neg (NEG) Urine Barbiturates Neg (NEG) Urine Phencyclidine Screen Neg (NEG) Urine Amphetamine/Methamphetamine Neg (NEG) Urine Benzodiazepines Screen Neg (NEG) Urine Cocaine Screen Neg (NEG) Urine Cannabinoids Screen Neg (NEG) Urine Ethyl Alcohol Neg (NEG) O2 Saturation 99 % (92-99) Arterial Blood pH 7.44 (7.35-7.45) Arterial Blood pCO2 at Patient Temp 40 mmHg (35-46) Arterial Blood pO2 at Patient Temp 260 mmHg (65-108) Arterial Blood HCO3 27 mmol/L (21-28) Arterial Blood Base Excess 3 mmol/L (-3-3) FiO2 100 Test 03/18/17 19:55 03/18/17 21:40 O2 Saturation 97 % (92-99) Arterial Blood pH 7.52 (7.35-7.45) Arterial Blood pCO2 at Patient Temp 35 mmHg (35-46) Arterial Blood pO2 at Patient Temp 92 mmHg (65-108) Arterial Blood HCO3 28 mmol/L (21-28) Arterial Blood Base Excess 5 mmol/L (-3-3) FiO2 50 Ammonia 11 mcmol/L (11-34) Medications Current Medications Succinylcholine Chloride (Anectine) 100 mg 1X ONCE IV Last administered on 03/18 15:10; Start 03/18/17 at 15:15; Stop 03/18/17 at 15:22; Status DC Etomidate (Amidate) 20 mg 1X ONCE IV Last administered on 03/18/17 15:10; Start 03/18/17 at 15:15; Stop 03/18/17 at 15:22; Status DC Midazolam HCl (Versed) 5 mg 1X ONCE IV Last administered on 03/18/17 15:17; Start 03/18/17 at 15:15; Stop 03/18/17 at 15:22; Status DC Fentanyl Citrate (Fentanyl 2ml Vial) 100 mcg 1X ONCE IV Last administered on 15:17; Start 03/18/17 at 15:15; Stop 03/18/17 at 15:22; Status DC Propofol (Diprivan) 200 mg 1X ONCE IV ; Start 03/18/17 at 15:15; Stop 03/18/17 at 16:55; Status DC Labetalol HCl (Normodyne) 20 mg 1X ONCE IVP ; Start 03/18/17 at 15:15; Stop 03/18 at 16:55; Status DC Midazolam HCl (Versed) 5 mg 1X ONCE IV ; Start 03/18/17 at 16:00; Stop 03/18/17 at 16:01; Status DC Sodium Chloride 1,000 ml @ 1,000 mls/hr 1X ONCE IV Last administered on 16:31; Start 03/18/17 at 15:45; Stop 03/18/17 at 16:44; Status DC Ondansetron HCl (Zofran) 4 mg PRN Q8HRS PRN IV NAUSEA/VOMITING; Start 03/18/17 at 16:00; Stop 03/19/17 at 15:59 Lorazepam (Ativan) 2 mg PRN Q4HRS PRN IV ANXIETY / AGITATION Last administered on 03/18/17 21:09; Start 03/18/17 at 16:30 Scopolamine (Transderm-Scop) 1 patch Q3DAYS TD Last administered on 03/18/17 17 :06; Start 03/18/17 at 17:00 Succinylcholine Chloride (Anectine) 200 mg STK-MED ONCE .ROUTE ; Start 03/18/17 at 19:20; Stop 03/18/17 at 19:21; Status DC Labetalol HCl (Normodyne) 20 mg PRN Q2HR PRN IVP HYPERTENSION, SEE COMMENTS; Start 03/18/17 at 22:45 Morphine Sulfate 2 mg PRN Q2HR PRN IV SEVERE PAIN; Start 03/18/17 at 22:45 Active Scripts Active Reported Aspirin 81 Mg Tab.chew 1 Tab PO DAILY Amlodipine Besylate 5 Mg Tablet 5 Mg PO DAILY Furosemide 20 Mg Tablet 1 Tab PO DAILY Eliquis (Apixaban) 5 Mg Tablet 5 Mg PO BID Pantoprazole Sodium 40 Mg Tablet.dr 1 Tab PO DAILY Metoprolol Tartrate 50 Mg Tablet 1 Tab PO BID Probiotic (L.acidoph & Paracasei,B.lactis) 1 Each Capsule 1 Each PO Magnesium (Magnesium Oxide) 400 Mg Capsule 1 Cap PO [blockbuster allclear] Cap PO Vitals/I & O Vital Sign - Last 24 Hours 03/18/17 03/18/17 03/18/17 03/18/17 15:12 15:12 15:30 15:38 Temp 98.7 98.7 Pulse 92 92 73 Resp 20 20 20 B/P (MAP) 208/105 (139) 208/105 (139) 178/82 (114) Pulse Ox 100 100 100 100 O2 Delivery NonRebreather Mask NonRebreather Mask Ventilator Ventilator 03/18/17 03/18/17 03/18/17 03/18/17 15:55 16:00 16:05 16:10 Pulse 64 64 62 62 Resp 20 20 20 20 B/P (MAP) 124/63 (83) 111/65 (80) 110/58 (75) 104/55 (71) Pulse Ox 100 100 100 100 O2 Delivery Ventilator Ventilator Ventilator Ventilator 03/18/17 03/18/17 03/18/17 03/18/17 16:15 16:24 16:30 16:35 Pulse 58 62 64 64 Resp 20 20 20 20 B/P (MAP) 98/56 (70) 108/57 (74) 105/57 (73) 133/74 (93) Pulse Ox 100 100 100 100 O2 Delivery Ventilator Ventilator Ventilator Ventilator 03/18/17 03/18/17 03/18/17 03/18/17 16:41 16:44 16:45 16:50 Pulse 78 72 66 Resp 20 20 20 B/P (MAP) 142/73 (96) 160/83 (108) 154/73 (100) Pulse Ox 100 100 100 100 O2 Delivery Ventilator Ventilator Ventilator Ventilator 03/18/17 03/18/17 03/18/17 03/18/17 16:55 17:06 17:32 17:42 Pulse 68 73 68 66 Resp 20 20 20 20 B/P (MAP) 150/74 (99) 151/84 (106) 132/73 (92) 124/70 (88) Pulse Ox 100 100 100 100 O2 Delivery Ventilator Ventilator Ventilator Ventilator 03/18/17 03/18/17 03/18/17 03/18/17 18:02 18:15 18:30 19:00 Temp 98.2 98.2 Pulse 68 66 68 66 Resp 24 20 20 20 B/P (MAP) 152/77 (102) 122/77 (92) 137/88 (104) Pulse Ox 98 98 100 O2 Delivery Ventilator Ventilator Ventilator Ventilator 03/18/17 03/18/17 03/18/17 03/18/17 19:40 20:00 20:00 21:00 Temp 98.1 98.1 Pulse 78 80 Resp 20 20 B/P (MAP) 175/91 (119) 143/80 (101) Pulse Ox 100 99 100 O2 Delivery Ventilator Ventilator Mechanical Ventilator Ventilator 03/18/17 03/18/17 03/18/17 03/18/17 21:30 22:00 22:05 22:30 Pulse 86 94 140 Resp 16 B/P (MAP) 166/88 (114) 175/91 (119) 190/52 (98) Pulse Ox 98 97 O2 Delivery Ventilator Ventilator 03/18/17 03/18/17 03/19/17 03/19/17 23:00 23:29 00:00 00:00 Temp 100.5 100.5 Pulse 118 99 Resp 16 16 B/P (MAP) 160/97 (118) 184/102 (129) Pulse Ox 97 97 100 O2 Delivery Ventilator Ventilator Ventilator Mechanical Ventilator 03/19/17 03/19/17 03/19/17 03/19/17 01:00 01:03 02:00 03:00 Temp 99.9 99.9 Pulse 107 108 112 Resp 16 16 16 B/P (MAP) 196/95 (128) 161/111 (128) 144/82 (102) Pulse Ox 97 98 97 97 O2 Delivery Ventilator Ventilator Ventilator Ventilator 03/19/17 03/19/17 03/19/17 03/19/17 03:09 04:00 04:00 05:00 Temp 98.9 98.9 Pulse 98 104 Resp 16 16 B/P (MAP) 114/78 (90) 68/52 (57) Pulse Ox 96 96 96 O2 Delivery Ventilator Ventilator Mechanical Ventilator Ventilator 03/19/17 03/19/17 03/19/17 03/19/17 05:29 06:00 07:00 07:45 Pulse 94 103 Resp 16 16 B/P (MAP) 67/46 (53) 62/48 (53) Pulse Ox 97 96 97 97 O2 Delivery Ventilator Ventilator Ventilator Ventilator 03/19/17 08:00 Temp 98.5 98.5 Pulse 96 Resp 16 B/P (MAP) 58/45 (49) Pulse Ox 96 O2 Delivery Ventilator Intake and Output 03/19/17 03/19/17 03/20/17 14:59 22:59 06:59 Output Total 0 ml Balance 0 ml DES HAY MD Mar 19, 2017 08:56
--- NOTE | 2017-03-19 11:44 | PDOC ---
Provider Note Provider Note Pt not seen by me. was terminally extubated and this am.. Large parenchymal hemorrhage in the right cerebral hemisphere with associated surrounding edema & ventricular extension of the hemorrhage. with moderate right to left shift. AMIRA CARREON MD Mar 19, 2017 11:44
--- NOTE | 2017-03-19 12:02 | PDOC3 ---
Discharge Summary Visit Information Date of Admission: Mar 18, 2017 Date of Discharge: Mar 19, 2017 Admitting Diagnosis Comment: 1. Large parenchymal hemorrhage in the right cerebral hemisphere with associated surrounding edema & ventricular extension of the hemorrhage. with moderate right to left shift. 2. Hx atrial fib and CVA x 3, TIA started on AC (eliquis) 3. HTN emergency POA 4. Necrotic GB sx hx (21 day stay at ), s.p exlap with cholecystectomy ( midline vertical scar) 5. DNR 6. Transient atrial fib RVR Final Diagnosis Problems Medical Problems: (1) CHF (congestive heart failure) Status: Acute (2) Hemorrhagic cerebrovascular accident (CVA) Status: Acute (3) Lactic acid acidosis Status: Acute (4) Leukocytosis Status: Acute Brief Hospital Course Allergies Allergies Coded Allergies Type Severity Reaction Last Updated Verified Unable to Assess 03/18/17 No Vital Signs Vital Signs Date Time Temp Pulse Resp B/P (MAP) Pulse Ox O2 Delivery O2 Flow Rate FiO2 03/19/17 10:00 94 16 56/43 (47) 96 Ventilator 03/19/17 08:00 98.5 98.5 Lab Results Laboratory Tests Test 03/18/17 15:15 03/18/17 15:20 03/18/17 15:35 03/18/17 16:49 Salicylates Level < 2.8 mg/dL (2.8-20.0) Salicylate Last Dose Date Unk Salicylate Last Dose Time Unk Acetaminophen Level < 10 mcg/ml (10-30) Acetaminophen Last Dose Date Unk Acetaminophen Last Dose Time Unk Ethyl Alcohol Level < 10 mg/dL (0-10) White Blood Count 21.6 x10^3/uL (4.0-11.0) Red Blood Count 4.43 x10^6/uL (4.30-5.70) Hemoglobin 10.8 g/dL (13.0-17.5) Hematocrit 35.2 % (39.0-53.0) Mean Corpuscular Volume 80 fL (79-100) Mean Corpuscular Hemoglobin 24 pg (25-35) Mean Corpuscular Hemoglobin Concent 31 g/dL (31-37) Red Cell Distribution Width 17.7 % (11.5-14.5) Platelet Count 234 x10^3/uL (140-400) Neutrophils (%) (Auto) 94 % (31-73) Lymphocytes (%) (Auto) 2 % (24-48) Monocytes (%) (Auto) 4 % (0-9) Eosinophils (%) (Auto) 0 % (0-3) Basophils (%) (Auto) 0 % (0-3) Neutrophils # (Auto) 20.2 x10^3uL (1.8-7.7) Lymphocytes # (Auto) 0.4 x10^3/uL (1.0-4.8) Monocytes # (Auto) 0.9 x10^3/uL (0.0-1.1) Eosinophils # (Auto) 0.0 x10^3/uL (0.0-0.7) Basophils # (Auto) 0.1 x10^3/uL (0.0-0.2) Segmented Neutrophils % 98 % (35-66) Monocytes % 2 % (0-10) Platelet Estimate Adequate (ADEQUATE) Hypochromasia Slight Poikilocytosis Slight Anisocytosis Slight Ovalocytes Occ Prothrombin Time 15.6 SEC (11.7-14.0) Prothromb Time International Ratio 1.3 (0.8-1.1) Activated Partial Thromboplast Time 26 SEC (24-38) Sodium Level 143 mmol/L (136-145) Potassium Level 3.3 mmol/L (3.5-5.1) Chloride Level 102 mmol/L (98-107) Carbon Dioxide Level 31 mmol/L (21-32) Anion Gap 10 (6-14) Blood Urea Nitrogen 22 mg/dL (8-26) Creatinine 1.2 mg/dL (0.7-1.3) Estimated GFR (Cockcroft-Gault) 60.4 BUN/Creatinine Ratio 18 (6-20) Glucose Level 166 mg/dL (70-99) Lactic Acid Level 3.9 mmol/L (0.4-2.0) Calcium Level 8.9 mg/dL (8.5-10.1) Magnesium Level 1.9 mg/dL (1.8-2.4) Total Bilirubin 0.6 mg/dL (0.2-1.0) Aspartate Amino Transf (AST/SGOT) 16 U/L (15-37) Alanine Aminotransferase (ALT/SGPT) 18 U/L (16-63) Alkaline Phosphatase 82 U/L (46-116) Creatine Kinase 34 U/L (39-308) Troponin I Quantitative 0.028 ng/mL (0.000-0.055) FM-Xmy-D-Type Natriuretic Peptide 6819 pg/mL (0-124) Total Protein 8.3 g/dL (6.4-8.2) Albumin 3.6 g/dL (3.4-5.0) Albumin/Globulin Ratio 0.8 (1.0-1.7) Lipase 73 U/L (73-393) Thyroid Stimulating Hormone (TSH) 0.790 uIU/mL (0.358-3.74) Urine Collection Type U cath Urine Color Yellow Urine Clarity Clear Urine pH 7.5 Urine Specific [place] 1.010 Urine Protein Negative mg/dL (NEG-TRACE) Urine Glucose (UA) 100 mg/dL (NEG) Urine Ketones (Stick) Negative mg/dL (NEG) Urine Blood Large (NEG) Urine Nitrite Negative (NEG) Urine Bilirubin Negative (NEG) Urine Urobilinogen Dipstick 0.2 mg/dL (0.2 mg/dL) Urine Leukocyte Esterase Negative (NEG) Urine RBC 1-2 /HPF (0-2) Urine WBC Occ /HPF (0-4) Urine Squamous Epithelial Cells Few /LPF Urine Bacteria Many /HPF (0-FEW) Urine Opiates Screen Neg (NEG) Urine Methadone Screen Neg (NEG) Urine Barbiturates Neg (NEG) Urine Phencyclidine Screen Neg (NEG) Urine Amphetamine/Methamphetamine Neg (NEG) Urine Benzodiazepines Screen Neg (NEG) Urine Cocaine Screen Neg (NEG) Urine Cannabinoids Screen Neg (NEG) Urine Ethyl Alcohol Neg (NEG) O2 Saturation 99 % (92-99) Arterial Blood pH 7.44 (7.35-7.45) Arterial Blood pCO2 at Patient Temp 40 mmHg (35-46) Arterial Blood pO2 at Patient Temp 260 mmHg (65-108) Arterial Blood HCO3 27 mmol/L (21-28) Arterial Blood Base Excess 3 mmol/L (-3-3) FiO2 100 Test 03/18/17 19:55 03/18/17 21:40 O2 Saturation 97 % (92-99) Arterial Blood pH 7.52 (7.35-7.45) Arterial Blood pCO2 at Patient Temp 35 mmHg (35-46) Arterial Blood pO2 at Patient Temp 92 mmHg (65-108) Arterial Blood HCO3 28 mmol/L (21-28) Arterial Blood Base Excess 5 mmol/L (-3-3) FiO2 50 Ammonia 11 mcmol/L (11-34) Laboratory Tests Test 03/18/17 15:15 03/18/17 15:20 03/18/17 15:35 03/18/17 16:49 Salicylates Level < 2.8 mg/dL (2.8-20.0) Salicylate Last Dose Date Unk Salicylate Last Dose Time Unk Acetaminophen Level < 10 mcg/ml (10-30) Acetaminophen Last Dose Date Unk Acetaminophen Last Dose Time Unk Ethyl Alcohol Level < 10 mg/dL (0-10) White Blood Count 21.6 x10^3/uL (4.0-11.0) Red Blood Count 4.43 x10^6/uL (4.30-5.70) Hemoglobin 10.8 g/dL (13.0-17.5) Hematocrit 35.2 % (39.0-53.0) Mean Corpuscular Volume 80 fL (79-100) Mean Corpuscular Hemoglobin 24 pg (25-35) Mean Corpuscular Hemoglobin Concent 31 g/dL (31-37) Red Cell Distribution Width 17.7 % (11.5-14.5) Platelet Count 234 x10^3/uL (140-400) Neutrophils (%) (Auto) 94 % (31-73) Lymphocytes (%) (Auto) 2 % (24-48) Monocytes (%) (Auto) 4 % (0-9) Eosinophils (%) (Auto) 0 % (0-3) Basophils (%) (Auto) 0 % (0-3) Neutrophils # (Auto) 20.2 x10^3uL (1.8-7.7) Lymphocytes # (Auto) 0.4 x10^3/uL (1.0-4.8) Monocytes # (Auto) 0.9 x10^3/uL (0.0-1.1) Eosinophils # (Auto) 0.0 x10^3/uL (0.0-0.7) Basophils # (Auto) 0.1 x10^3/uL (0.0-0.2) Segmented Neutrophils % 98 % (35-66) Monocytes % 2 % (0-10) Platelet Estimate Adequate (ADEQUATE) Hypochromasia Slight Poikilocytosis Slight Anisocytosis Slight Ovalocytes Occ Prothrombin Time 15.6 SEC (11.7-14.0) Prothromb Time International Ratio 1.3 (0.8-1.1) Activated Partial Thromboplast Time 26 SEC (24-38) Sodium Level 143 mmol/L (136-145) Potassium Level 3.3 mmol/L (3.5-5.1) Chloride Level 102 mmol/L (98-107) Carbon Dioxide Level 31 mmol/L (21-32) Anion Gap 10 (6-14) Blood Urea Nitrogen 22 mg/dL (8-26) Creatinine 1.2 mg/dL (0.7-1.3) Estimated GFR (Cockcroft-Gault) 60.4 BUN/Creatinine Ratio 18 (6-20) Glucose Level 166 mg/dL (70-99) Lactic Acid Level 3.9 mmol/L (0.4-2.0) Calcium Level 8.9 mg/dL (8.5-10.1) Magnesium Level 1.9 mg/dL (1.8-2.4) Total Bilirubin 0.6 mg/dL (0.2-1.0) Aspartate Amino Transf (AST/SGOT) 16 U/L (15-37) Alanine Aminotransferase (ALT/SGPT) 18 U/L (16-63) Alkaline Phosphatase 82 U/L (46-116) Creatine Kinase 34 U/L (39-308) Troponin I Quantitative 0.028 ng/mL (0.000-0.055) EF-Ovm-A-Type Natriuretic Peptide 6819 pg/mL (0-124) Total Protein 8.3 g/dL (6.4-8.2) Albumin 3.6 g/dL (3.4-5.0) Albumin/Globulin Ratio 0.8 (1.0-1.7) Lipase 73 U/L (73-393) Thyroid Stimulating Hormone (TSH) 0.790 uIU/mL (0.358-3.74) Urine Collection Type U cath Urine Color Yellow Urine Clarity Clear Urine pH 7.5 Urine Specific [place] 1.010 Urine Protein Negative mg/dL (NEG-TRACE) Urine Glucose (UA) 100 mg/dL (NEG) Urine Ketones (Stick) Negative mg/dL (NEG) Urine Blood Large (NEG) Urine Nitrite Negative (NEG) Urine Bilirubin Negative (NEG) Urine Urobilinogen Dipstick 0.2 mg/dL (0.2 mg/dL) Urine Leukocyte Esterase Negative (NEG) Urine RBC 1-2 /HPF (0-2) Urine WBC Occ /HPF (0-4) Urine Squamous Epithelial Cells Few /LPF Urine Bacteria Many /HPF (0-FEW) Urine Opiates Screen Neg (NEG) Urine Methadone Screen Neg (NEG) Urine Barbiturates Neg (NEG) Urine Phencyclidine Screen Neg (NEG) Urine Amphetamine/Methamphetamine Neg (NEG) Urine Benzodiazepines Screen Neg (NEG) Urine Cocaine Screen Neg (NEG) Urine Cannabinoids Screen Neg (NEG) Urine Ethyl Alcohol Neg (NEG) O2 Saturation 99 % (92-99) Arterial Blood pH 7.44 (7.35-7.45) Arterial Blood pCO2 at Patient Temp 40 mmHg (35-46) Arterial Blood pO2 at Patient Temp 260 mmHg (65-108) Arterial Blood HCO3 27 mmol/L (21-28) Arterial Blood Base Excess 3 mmol/L (-3-3) FiO2 100 Test 03/18/17 19:55 03/18/17 21:40 O2 Saturation 97 % (92-99) Arterial Blood pH 7.52 (7.35-7.45) Arterial Blood pCO2 at Patient Temp 35 mmHg (35-46) Arterial Blood pO2 at Patient Temp 92 mmHg (65-108) Arterial Blood HCO3 28 mmol/L (21-28) Arterial Blood Base Excess 5 mmol/L (-3-3) FiO2 50 Ammonia 11 mcmol/L (11-34) Brief Hospital Course Mr. Becker is a 66 old [place] male who arrived at ER with GCS 3, intubated immediately, CT shows large brain intraparenchymal bleed, not amenable to sx, with midline shift and edema, no chance of meaningful recovery or survival,. Neurosx shared the same sentiment, Pt stayed overnight on ICU, vented not on any sedation and no response to pain, no gag. After heavy time and multiple visits, DNR, agreed to terminal extubation, HE passed shortly thereafter, cert to be forwarded to or pls DispO; 2 notes today Discharge Information Condition at Discharge: / Disposition/Orders: Scheduled Amlodipine Besylate (Amlodipine Besylate), 5 MG PO DAILY, (Reported) Apixaban (Eliquis), 5 MG PO BID, (Reported) Aspirin (Aspirin), 1 TAB PO DAILY, (Reported) Furosemide (Furosemide), 1 TAB PO DAILY, (Reported) Metoprolol Tartrate (Metoprolol Tartrate), 1 TAB PO BID, (Reported) Pantoprazole Sodium (Pantoprazole Sodium), 1 TAB PO DAILY, (Reported) Miscellaneous Medications L.acidoph & Paracasei,B.lactis (Probiotic), 1 EACH PO, (Reported) Magnesium Oxide (Magnesium), 1 CAP PO, (Reported) [blockbuster allclear], CAP PO, (Reported) DES HAY MD Mar 19, 2017 12:02
== END 2017-03-19 10:37 | disposition expired | DRG 64 ==
LOC: ER 15:07 → 1 WEST ICU 15:47
PROVIDERS: ADMIT Internal Medicine; ATTEND Internal Medicine
DX: I63.9 Cerebral infarction, unspecified (principal); I61.2 Nontraumatic intracerebral hemorrhage in hemisphere, unspecified; G93.6 Cerebral edema; E87.2 Acidosis; I95.9 Hypotension, unspecified; I11.0 Hypertensive heart disease with heart failure; I48.91 Unspecified atrial fibrillation; I50.9 Heart failure, unspecified; I16.1 Hypertensive emergency; Z66 Do not resuscitate; D72.829 Elevated white blood cell count, unspecified; R40.2430 Glasgow coma scale score 3-8, unspecified time; E78.5 Hyperlipidemia, unspecified; Z86.73 Personal history of transient ischemic attack (TIA), and cerebral infarction without residual deficits; Z90.49 Acquired absence of other specified parts of digestive tract
CPT/HCPCS: 31500; 36415; 36600; 51702; 70450; 71010; 80053; 80307; 80329; 81001; 82140; 82550; 82805; 83605; 83690; 83735; 83880; 84443; 84484; 85007; 85025; 85610; 85730; 87040; 87086; 87641; 93005; 94002; 94003; 96361; 96374; 96375; G0480; J0330; J2060; J2250; J3010; J7030; 99285-25; G0479